=== PATIENT | female | born 1960 | race Caucasian/White ===

== ENCOUNTER → 2018-05-03 | Outpatient (CLI) | payer OTHER | LOC: M.RAD 08:04 | DX: Z12.31 Encounter for screening mammogram for malignant neoplasm of breast (principal) ==

== ENCOUNTER → 2018-06-14 | Outpatient (CLI) | payer OTHER ==
[2018-06-14 15:46] LABS: ABSOLUTE EOSINOPHILS 0.1 thou/uL (0.0-0.7); ABSOLUTE LYMPHOCYTES 1.3 thou/uL (0.8-5.3); ABSOLUTE MONOCYTES 0.3 thou/uL (0.0-1.2); ABSOLUTE NEUTROPHILS 2.4 thou/uL (1.6-8.1); BASOPHILS 0.6 %; EOSINOPHILS 1.3 %; LYMPHOCYTES 31.1 %; MCH 31.2 pg (26.0-34.0); MCHC 33.4 g/dL (28.0-37.0); MCV 93.6 fL (80.0-100.0); MONOCYTES 8.3 %; MPV 7.9 fl. (7.2-11.1); NUCLEATED RBCS 0 /100WBC; PLATELET COUNT* 348 thou/uL (150-400); POLYS 58.7 %; RBC 4.48 mil/uL (4.20-5.00); RDW-CV 13.4 % (10.5-14.5); WBC 4.1 thou/uL (4.0-11.0)
[2018-06-14 16:00] LABS: ALBUMIN 3.8 g/dL (3.4-5.0); ALKALINE PHOSPHATASE 88 U/L (46-116); ANION GAP 7 mmol/L (7-16); BUN 12 mg/dL (7-18); CALCIUM 8.9 mg/dL (8.5-10.1); CHLORIDE 102 mmol/L (98-107); CHOLESTEROL 245 mg/dL (<200); CO2 30 mmol/L (21-32); CREATININE 0.6 mg/dL (0.6-1.3); GLUCOSE 91 mg/dL (70-99); HDL CHOLESTEROL 97 mg/dL (>40); LDL CHOLESTEROL 142 mg/dL (<100); POTASSIUM 3.7 mmol/L (3.5-5.1); SGOT 18 U/L (15-37); SGPT 22 U/L (30-65); SODIUM 139 mmol/L (136-145); TC:HDL 2.5 Ratio (Not establshd); TOTAL BILIRUBIN 0.4 mg/dL (<0.1-1.0); TOTAL PROTEIN 7.7 g/dL (6.4-8.2); TRIGLYCERIDE 32 mg/dL (<150); VLDL 6 mg/dL (<40)
[2018-06-14 17:54] LABS: SERUM ASSESSMENT Clear
== END ==
LOC: M.LAB 15:06
PROVIDERS: Internal Medicine
DX: Z00.00 Encounter for general adult medical examination without abnormal findings (principal); E78.2 Mixed hyperlipidemia

== ENCOUNTER → 2018-10-13 | Outpatient (CLI) | payer OTHER | LOC: M.RAD 16:28 | DX: M25.551 Pain in right hip (principal); W19.XXXA Unspecified fall, initial encounter ==

== ENCOUNTER 2019-03-05 21:15 | Emergency (ER) | payer OTHER ==
[~2019-03-05] VITALS: Ht 165.1 cm; Wt 59.0 kg
[2019-03-05] MEDS ORDERED: PREDNISONE 10 M10 M1 PO (21:34)
[2019-03-05 21:43] VITALS: BP 120/59
== END 2019-03-05 21:43 | disposition home or self-care (01) ==
LOC: M.ERS 21:15
DX: T63.461A Toxic effect of venom of wasps, accidental (unintentional), initial encounter (principal); Z98.890 Other specified postprocedural states; Y92.89 Other specified places as the place of occurrence of the external cause

== ENCOUNTER → 2020-08-07 | Outpatient (CLI) | payer OTHER ==
[~2020-08-07] MED LIST: PREDNISONE 10 M10 M1 PO
== END ==
LOC: M.RAD 07:36
PROVIDERS: ATTEND Internal Medicine
DX: Z12.31 Encounter for screening mammogram for malignant neoplasm of breast (principal)

== ENCOUNTER → 2020-09-07 | Outpatient (CLI) | payer OTHER ==
[2020-09-07 10:14] LABS: ABSOLUTE EOSINOPHILS 0.1 thou/uL (0.0-0.7); ABSOLUTE LYMPHOCYTES 1.7 thou/uL (0.8-5.3); ABSOLUTE MONOCYTES 0.3 thou/uL (0.0-1.2); ABSOLUTE NEUTROPHILS 2.7 thou/uL (1.6-8.1); BASOPHILS 0.9 %; EOSINOPHILS 1.5 %; HEMOGLOBIN 13.9 gm/dL (12.0-15.0); LYMPHOCYTES 34.5 %; MCH 30.4 pg (26.0-34.0); MCHC 33.1 g/dL (28.0-37.0); MCV 91.6 fL (80.0-100.0); MONOCYTES 6.5 %; MPV 7.6 fl. (7.2-11.1); NUCLEATED RBCS 0 /100WBC; PLATELET COUNT* 333 thou/uL (150-400); POLYS 56.6 %; RBC 4.59 mil/uL (4.20-5.00); RDW-CV 13.1 % (10.5-14.5); WBC 4.8 thou/uL (4.0-11.0)
[2020-09-07 10:28] LABS: ALBUMIN 3.9 g/dL (3.4-5.0); ALKALINE PHOSPHATASE 84 U/L (46-116); ANION GAP 8 mmol/L (7-16); BUN 12 mg/dL (7-18); CALCIUM 9.2 mg/dL (8.5-10.1); CHLORIDE 104 mmol/L (98-107); CHOLESTEROL 306 mg/dL (<200); CO2 29 mmol/L (21-32); CREATININE 0.8 mg/dL (0.6-1.3); GLUCOSE 99 mg/dL (70-99); HDL CHOLESTEROL 102 mg/dL (>40); LDL CHOLESTEROL 194 mg/dL (<100); POTASSIUM 3.6 mmol/L (3.5-5.1); SERUM ASSESSMENT Clear; SGOT 18 U/L (15-37); SGPT 19 U/L (30-65); SODIUM 141 mmol/L (136-145); TOTAL BILIRUBIN 0.5 mg/dL (<0.1-1.0); TOTAL PROTEIN 7.5 g/dL (6.4-8.2); TRIGLYCERIDE 52 mg/dL (<150); VLDL 10 mg/dL (<40)
== END ==
LOC: M.LAB 09:54
PROVIDERS: ATTEND Internal Medicine
DX: Z01.419 Encounter for gynecological examination (general) (routine) without abnormal findings (principal)